=== PATIENT | male | born 1955 | race Hispanic/Latino ===

== ENCOUNTER 2019-06-27 00:34 | Emergency (ER) | payer BC ==
[~2019-06-27] VITALS: Ht 167.6 cm; Wt 80.7 kg
--- NOTE | 2019-06-27 01:50 | Diagnostic Imaging Report ---
X-ray right ankle radiographs 3 views HISTORY: Pain. COMPARISON: None available. FINDINGS: Bones:Acute oblique fracture of the distal fibula extends to the level of the tibial plafond. Minimally displaced posterior malleolus fracture involves greater than 25% of the tibial plafond articular surface. Joints: Widening of the medial clear space concerning for deltoid ligament injury. Mild widening of the distal tibiofibular joint. Soft tissues: Soft tissue swelling about the lower calf, ankle, and foot. IMPRESSION: 1. Acute oblique fracture of the distal fibula extends to the level of the tibial plafond. 2. Minimally displaced posterior malleolus fracture involves greater than 25% of the tibial plafond articular surface. 3. Widening of the medial clear space concerning for deltoid ligament injury. 4. Mild widening of the distal tibiofibular joint concerning for distal syndesmosis injury. Signed by: Sam Morales DO on 06/27/2019 1:46 AM
[2019-06-27] MEDS ORDERED: HYDROCODONE/APAP 10MG-325MG TAB PO ONE (02:00)
[2019-06-27] MEDS ORDERED: HYDROCODONE/APAP 10MG-325MG TAB ONE (02:23)
[2019-06-27 03:24] VITALS: BP 136/70
== END 2019-06-27 03:32 | disposition home or self-care (01) ==
LOC: ER 00:34
DX: S82.871A Displaced pilon fracture of right tibia, initial encounter for closed fracture (principal); S82.851A Displaced trimalleolar fracture of right lower leg, initial encounter for closed fracture; X50.1XXA Overexertion from prolonged static or awkward postures, initial encounter; Y92.008 Other place in unspecified non-institutional (private) residence as the place of occurrence of the external cause
CPT/HCPCS: 99284

== ENCOUNTER → 2019-07-18 | Day surgery (SDC) | payer BC, OTHER ==
[2019-07-14 13:42] LABS: BASOPHILS # (AUTO) 0.1 (0.0-0.1); BASOPHILS % 0.7 % (0.0-1.0); EOSINOPHILS # (AUTO) 0.1 (0.0-0.4); EOSINOPHILS % 0.7 % (0.0-6.0); HEMATOCRIT 44.5 % (38.2-49.6); HEMOGLOBIN 13.9 g/dL (14.0-18.0); LYMPHOCYTES # (AUTO) 2.1 (1.0-3.2); LYMPHOCYTES % 21.7 % (18.0-39.1); MEAN CORPUSCULAR HEMOGLOBIN 28.4 pg (28-32); MEAN CORPUSCULAR HGB CONC 31.2 g/dL (31-35); MEAN CORPUSCULAR VOLUME 90.8 fL (81-99); MONOCYTES # (AUTO) 0.9 (0.2-0.8); MONOCYTES % 9.2 % (4.4-11.3); NEUTROPHILS # (AUTO) 6.5 (2.1-6.9); NEUTROPHILS % 67.1 % (38.7-80.0); PLATELET COUNT 357 x10e3/uL (140-360); RED CELL DISTRIBUTION WIDTH 12.9 % (11.7-14.4)
--- NOTE | 2019-07-14 13:56 | Diagnostic Imaging Report ---
EXAMINATION: CHEST 2 VIEWS INDICATION: Pre-operative COMPARISON: None FINDINGS: LINES/TUBES:None LUNGS:The lungs are well-inflated. No focal consolidation or pulmonary edema. PLEURA:No pleural effusion or pneumothorax. MEDIASTINUM:The cardiomediastinal silhouette appears normal in size and shape. BONES/SOFT TISSUES:No acute osseous injury. ABDOMEN:No free air under the diaphragm. IMPRESSION: No focal pneumonia or pulmonary edema. Signed by: Orlin Wang MD on 07/14/2019 1:52 PM
[2019-07-14 14:14] LABS: ANION GAP 13.5 mmol/L (8-16); BLOOD UREA NITROGEN 9 mg/dL (7-26); BUN/CREATININE RATIO 11 (6-25); CALCIUM 9.9 mg/dL (8.4-10.2); CARBON DIOXIDE 26 mmol/L (22-29); CHLORIDE 108 mmol/L (98-107); CREATININE, SERUM 0.81 mg/dL (0.72-1.25); EST GLOMERULAR FILTRATION RATE > 60 ML/MIN (60-); GLUCOSE 93 mg/dL (74-118); POTASSIUM 4.5 mmol/L (3.5-5.1); SODIUM 143 mmol/L (136-145)
[~2019-07-18] MED LIST: ACETAMINOPHEN 1000 MG/100 ML IV ONE; AMLODIPINE BESYL5 MG PO; ASPIR 8181 MG PO; BACITRACIN 50,000 UNIT VIAL ONE; BETAMETHASONE DISODIUM PHOS 6 MG/ML VIAL ONE; BUPIVACAINE HCL 0.5% INJ 30 ML VIAL INJ ONE; CEFAZOLIN SOD 1 GM/NS 50ML 100 ML IV ONE; DEXAMETHASONE SOD PHOS INJ 4 MG/ML VIAL ONE; FENTANYL CITRATE/PF 100MCG/2 ML INJ ONE; GLYCOPYRROLATE INJ 0.2 MG/ML VIAL ONE; LIDOCAINE HCL 1% LOCAL INJ 20 ML VIAL ONE; LIDOCAINE HCL 2% LOCAL INJ 5 ML SDV VIAL INJ ONE; LIPITOR10 MG PO; LISINOPRIL10 MG PO; MIDAZOLAM HCL 2 MG/2 ML VIAL ONE; MUPIROCIN 2% OINT 22 GM TUBE ONE; NEOSTIGMINE 1 MG/ML 10ML VIAL ONE; ONDANSETRON HCL INJ 2MG/ML 2ML 2 MG/ML VIAL ONE; PROPOFOL IV EMULSION 10 MG/ML 20 ML VIAL ONE; ROCURONIUM BROMIDE 10 MG/ML 5ML VIAL IV ONE; SEVOFLURANE INHAL SOLN 250 ML PEN BTL ONE
[2019-07-18 09:40] VITALS: BP 146/75
--- NOTE | 2019-07-18 10:12 | Diagnostic Imaging Report ---
EXAM: ANKLE TWO VIEWS RIGHT DATE: 07/18/2019 9:08 AM INDICATION: Postoperative COMPARISON: 06/27/2019 FINDINGS: Again identified are subacute fractures of the distal right fibula and tibia with interval surgical fixation. 2 fixation screws are identified within the distal fibula as well as 2 fixation screws identified within the distal tibia. Hardware appears intact and alignment improved from the prior examination. There is no evidence for new fracture. No focal lytic or blastic abnormality is identified. There is mild soft tissue swelling present. IMPRESSION: Expected postsurgical changes from right ankle ORIF. Signed by: Dr. Gorge Silva MD on 07/18/2019 10:08 AM
--- NOTE | 2019-07-18 14:33 | Operative Report ---
DATE OF PROCEDURE: 07/18/2019 SURGEON: Joel Cuevas DPM PREOPERATIVE DIAGNOSIS: Ankle fracture, involving the tibial plafond and fibula fracture of the right ankle. POSTOPERATIVE DIAGNOSIS: Confirmed. OPERATIVE PROCEDURE: 1. Open reduction and internal fixation of the fibular fracture. 2. Open reduction and internal fixation of the tibial plafond fracture/posterior tibial fragment fracture. 3. Intraoperative use of fluoroscopy. 4. Trigger point shot of cortisone. 5. Application of posterior splint. ANESTHESIA: General. HEMOSTASIS: Pneumatic thigh tourniquet at 350 mmHg. PROCEDURE IN DETAIL: The patient was taken into the operating and placed in the supine position. The patient was induced with general anesthesia at that point and a Webril wrap was applied around the right thigh, followed by application of right thigh tourniquet. The patient was then placed in the prone position on the operating room table and utilizing proper OR aseptic technique, the right lower extremity was then prepped and draped in the usual aseptic manner. The thigh tourniquet was then inflated to 350 mmHg and the following procedures were then performed. PROCEDURE #1: Open reduction and internal fixation of the right fibula, utilizing 2.7 interfragmentary screws, utilizing the lag technique. Attention was directed to the posterior aspect of the right talotibial joint where a midline incision was performed midline through the posterior aspect of the fibula and medial and lateral aspects of the Achilles tendon. The incision was then deepened down to the peroneal fascia. The fascia was then cut meticulously utilizing Metzenbaum scissors and the fibula fracture was then clearly exposed. At this point, utilizing proper AO technique and a lag screw type of fashion, two 2.7 screws were used, one measuring 22 and the other one measuring 24 millimeters in length. Interfragmentary screws were placed in proper AO technique and the fibular length was maintained. PROCEDURE #2: Intraoperative use of fluoroscopy was then used to make sure proper fixation and fibula length was obtained. PROCEDURE #3: Open reduction and internal fixation of the posterior tibial plafond fracture. Attention was then directed through the incision and utilizing meticulous dissection, the flexor hallucis longus muscle belly was resected free from the posterior aspect of the right tibia, utilizing meticulous dissection. Care was taken to preserve all vital structures including sural nerve and peroneal artery. Then utilizing proper AO technique, two cortical screws, both measuring 45 mm in length and utilizing a lag technique, the posterior fragment was then aligned as best as possible. Utilizing proper AO technique, two 3.5 and 45 mm screws were then used in proper fashion, utilizing a lag technique. The posterior fragment was then clearly reduced as best as possible. All areas were then copiously flushed with sterile antibiotic solution and suctioned. Once again, intraoperative use of fluoroscopy was then used to make sure proper alignment fixation was achieved. All areas were then copiously flushed with sterile antibiotic solution and suction. Closure was then obtained utilizing 2-0 Vicryl and 3-0 nylon for reapproximation of the peroneal fascia and subcutaneous tissue and skin respectively. PROCEDURE#4: Trigger point shot of cortisone was then given to the posterior aspect of the right ankle overlying the talar-tibial joint and overlying the proximal aspect of the right tibia. Then, approximately 15 mL of 0.5% plain Marcaine in conjunction with 10 mL of 1% Xylocaine plain were used to achieve local anesthesia of above-mentioned surgical area. A sterile dressing was applied and the thigh tourniquet was then released and blood hyperemia was noted to all digits of the patient's right foot. PROCEDURE #5: Application of posterior splint. Properly placed posterior splint was then applied, keeping the foot at neutral with at least 3-5 degrees of dorsiflexion to allow for proper healing and soft tissue contracture. The patient was then transferred from the OR to recovery room with vital signs stable and neurovascular status intact. No intraoperative complications were encountered. Blood loss from the surgery was minimal. The patient to remain nonweightbearing with the aid of crutches, keep his foot elevated. He is to apply an ice pack to the ankle joint area. He is to remain nonweightbearing with the aid of crutches for the next 8 to 12 weeks. DUNIA Shelby/CELESTE /[id number]
== END | disposition home or self-care (01) ==
LOC: OR 05:14
PROVIDERS: ATTEND Podiatrist Foot Surgery
DX: S82.871A Displaced pilon fracture of right tibia, initial encounter for closed fracture (principal); S82.831A Other fracture of upper and lower end of right fibula, initial encounter for closed fracture; I10 Essential (primary) hypertension; F17.210 Nicotine dependence, cigarettes, uncomplicated; X58.XXXA Exposure to other specified factors, initial encounter; Z01.810 Encounter for preprocedural cardiovascular examination; Z01.812 Encounter for preprocedural laboratory examination; Z01.818 Encounter for other preprocedural examination; Z11.59 Encounter for screening for other viral diseases; Z79.82 Long term (current) use of aspirin
CPT/HCPCS: 27828; 36415; 71046; 73600; 80048; 85002; 85025; 87635; 93005; C1713 ×3; J0131; J0690; J0720; J1100; J2001 ×2; J2250; J2405; J2704; J2710; J3010; J3590